=== PATIENT | female | born 1990 | race Caucasian/White ===

== ENCOUNTER 2017-11-22 18:25 | Emergency (ER) | payer OTHER, SELFPAY ==
[2017-11-22 21:00] LABS: Urine Blood NEGATIVE (NEG); Urine Glucose NEGATIVE (NEG); Urine Protein NEGATIVE (NEG); Urine Specific Gravity 1.025 (1.005-1.030)
--- NOTE | 2017-11-22 21:21 | EDPHYS ---
Physician Documentation [facility] Name: Kerri Fulton Age: 27 yrs Sex: Female : 1990 Arrival Date: 11/22/2017 Time: 18:29 Bed 12 Private MD: ED Physician Angel Restrepo HPI: 11/23 03:40 This 27 yrs old Female presents to ER via Ambulatory with complaints of Back pm1 Pain. 03:40 The patient presents with pain that is acute. The symptoms are located in the low back. pm1 Onset: The symptoms/episode began/occurred 1 week(s) ago. The pain does not radiate. Associated signs and symptoms: Pertinent negatives: abdominal pain, dysuria, fever, numbness, tingling, Vaginal bleeding. 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 Modifying factors: The patient symptoms are alleviated by rest, the patient symptoms are aggravated by bending, lifting, movement. Severity of symptoms: in the emergency department the symptoms are unchanged. 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 - Social history:: Smoking status: Patient/guardian denies using tobacco. ROS: 11/23 03:40 Constitutional: Negative for fever, chills, and weight loss, Eyes: Negative for injury, pm1 pain, redness, and discharge, ENT: Negative for injury, pain, and discharge, Neck: Negative for injury, pain, and swelling, Cardiovascular: Negative for chest pain, palpitations, and edema, Respiratory: Negative for shortness of breath, cough, wheezing, and pleuritic chest pain, Abdomen/GI: Negative for abdominal pain, nausea, vomiting, diarrhea, and constipation. : Negative for injury, bleeding, discharge, and swelling, MS/Extremity: Negative for injury and deformity, Skin: Negative for injury, rash, and discoloration, Neuro: Negative for headache, weakness, numbness, tingling, and seizure. Back: Positive for of the low back area. Exam: 03:40 Constitutional: This is a well developed, well nourished patient who is awake, alert, pm1 and in no acute distress. Head/Face: Normocephalic, atraumatic. Eyes: Pupils equal round and reactive to light, extra-ocular motions intact. Lids and lashes normal. Conjunctiva and sclera are non-icteric and not injected. Cornea within normal limits. Periorbital areas with no swelling, redness, or edema. ENT: Nares patent. No nasal discharge, no septal abnormalities noted. Tympanic membranes are normal and external auditory canals are clear. Oropharynx with no redness, swelling, or masses, exudates, or evidence of obstruction, uvula midline. Mucous membranes moist. Neck: Trachea midline, no thyromegaly or masses palpated, and no cervical lymphadenopathy. Supple, full range of motion without nuchal rigidity, or vertebral point tenderness. No Meningismus. Chest/axilla: Normal chest wall appearance and motion. Nontender with no deformity. No lesions are appreciated. Cardiovascular: Regular rate and rhythm with a normal S1 and S2. No gallops, murmurs, or rubs. Normal PMI, no JVD. No pulse deficits. Respiratory: Lungs have equal breath sounds bilaterally, clear to auscultation and percussion. No rales, rhonchi or wheezes noted. No increased work of breathing, no retractions or nasal flaring. Abdomen/GI: Soft, non-tender, with normal bowel sounds. No distension or tympany. No guarding or rebound. No evidence of tenderness throughout. 03:40 Skin: Warm, dry with normal turgor. Normal color with no rashes, no lesions, and no evidence of cellulitis. MS/ Extremity: Pulses equal, no cyanosis. Neurovascular intact. Full, normal range of motion. 03:40 Back: normal spinal alignment noted, muscle spasm, is not present. 03:40 Neuro: Orientation: is normal, Mentation: is normal, Motor: is normal, moves all fours, strength is normal, strength is 5/5 in all extremities, Sensation: is normal, no obvious gross deficits, Gait: is steady, at a normal pace, without difficulty. Vital Signs: 11/22 18:46 BP 110 / 80; Pulse 68; Resp 15; Temp 97.6(TE); Pulse Ox 100% on R/A; Weight 104.33 kg lk1 (R); Height 5 ft. 3 in. (160.02 cm) (R); Pain 8/10; 18:46 Body Mass Index 40.74 (104.33 kg, 160.02 cm) lk1 MDM: 20:28 Patient medically screened. pm1 21:18 Data reviewed: vital signs. Data interpreted: Pulse oximetry: on room air is 100 %. pm1 Interpretation: normal. Counseling: I had a detailed discussion with the patient and/or guardian regarding: the historical points, exam findings, and any diagnostic results supporting the discharge/admit diagnosis, lab results, the need for outpatient follow up, an OB/Gyne specialist, to return to the emergency department if symptoms worsen or persist or if there are any questions or concerns that arise at home. 11/22 20:58 Order name: Urine Dipstick--Ancillary (enter results); Complete Time: 21:09 em1 11/22 20:58 Order name: Urine --Ancillary (enter results); Complete Time: 21:09 em1 11/22 21:11 Order name: Urine Microscopic Only [facility] 11/22 21:11 Order name: Urine Culture [facility] 11/22 21:11 Order name: Urine Microscopic Only [facility] 11/22 21:11 Order name: Urine Culture [facility] 11/22 20:39 Order name: Urine Dipstick-Ancillary (obtain specimen); Complete Time: 20:57 pm1 11/22 20:39 Order name: Urine Test (obtain specimen); Complete Time: 20:57 pm1 Administered Medications: No medications were administered Disposition: 11/23 01:25 Co-signature as Attending Physician, Angel Restrepo MD. pkl Disposition: 11/22/17 21:20 Discharged to Home. Impression: Urinary tract infection, site not specified, . - Condition is Stable. - Discharge Instructions: and Urinary Tract Infection. - Prescriptions for Macrobid 100 mg Oral Capsule - take 1 capsule by ORAL route every 12 hours for 10 days; 20 capsule. - Medication Reconciliation Form, Thank You Letter, Antibiotic Education form. - Follow up: Emergency Department; When: As needed; Reason: Worsening of condition. Follow up: Private Physician; When: 2 - 3 days; Reason: Recheck today's complaints, Continuance of care, Re-evaluation by your physician. - Problem is new. - Symptoms have improved. Signatures: Dispatcher [employer] Angel Muñoz MD MD pkl Chretien, Felicia, RN RN fc Eugenie Ramirez RN RN lk1 Byron Cote, KARLA CUBE MACHINE TENDER pm1
--- NOTE | 2017-11-22 21:21 | ER ---
Nurse's Notes [facility] Name: Kerri Fulton Age: 27 yrs Sex: Female : 1990 Arrival Date: 11/22/2017 Time: 18:29 Bed 12 Private MD: Diagnosis: Urinary tract infection, site not specified; Presentation: 11/22 18:44 Presenting complaint: Patient states: My back has been killing me. I have three kids lk1 and I can't stand very long. Transition of care: patient was not received from another setting of care. Onset of symptoms was November 06, 2017. Care prior to arrival: None. 18:44 Method Of Arrival: Ambulatory lk1 18:44 Acuity: KEN 5 lk1 Triage Assessment: 18:45 General: Appears in no apparent distress. Behavior is calm, cooperative, appropriate lk1 for age. Pain: Complains of pain in low back area Pain currently is 8 out of 10 on a pain scale. Musculoskeletal: Swelling absent. 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 - Social history:: Smoking status: Patient/guardian denies using tobacco. Screenin:17 Abuse screen: Denies threats or abuse. Nutritional screening: No deficits noted. fc Tuberculosis screening: No symptoms or risk factors identified. Fall Risk None identified. Assessment: 20:17 General: Appears uncomfortable, obese, Behavior is calm, cooperative, appropriate for fc age. Pain: Complains of pain in low back area Quality of pain is described as aching, throbbing, Pain began gradually, Is continuous, Aggravated by increased activity, repositioning, weight bearing. Neuro: Level of Consciousness is awake, alert, obeys commands, Oriented to person, place, time, situation, Document Review Attorney are equal bilaterally Moves all extremities. Full function Gait is steady, Speech is normal. Cardiovascular: No deficits noted. Respiratory: No deficits noted. GI: No deficits noted. : Denies burning with urination, incontinence, urinary frequency. EENT: No deficits noted. Derm: Skin is pink, warm \T\ dry. Musculoskeletal: Circulation, motion, and sensation intact. Capillary refill < 3 seconds, Range of motion: intact in all extremities, Reports pain in low back area. 20:30 Reassessment: Byron ACOSTA in to see and examine pt. 21:12 Reassessment: Byron ACOSTA in to discuss positive test and need for follow up. Vital Signs: 18:46 BP 110 / 80; Pulse 68; Resp 15; Temp 97.6(TE); Pulse Ox 100% on R/A; Weight 104.33 kg lk1 (R); Height 5 ft. 3 in. (160.02 cm) (R); Pain 8/10; 18:46 Body Mass Index 40.74 (104.33 kg, 160.02 cm) lk1 ED Course: 18:29 Patient arrived in ED. as 18:45 Triage completed. lk1 18:47 Arm band placed on right wrist. lk1 20:17 Patient has correct armband on for positive identification. Call light in reach. fc 20:17 No provider procedures requiring assistance completed. Patient did not have IV access fc during this emergency room visit. 20:19 Urine collected: clean catch specimen, clear. 20:24 Byron Cote NP is PHCP. pm1 20:24 Angel Restrepo MD is Attending Physician. pm1 Administered Medications: No medications were administered Outcome: 21:20 Discharge ordered by . pm1 21:36 Discharged to home ambulatory. 21:36 Condition: good 21:36 Discharge instructions given to patient, Instructed on discharge instructions, follow up and referral plans. medication usage, Demonstrated understanding of instructions, follow-up care, medications, Prescriptions given X 1. 21:36 Patient left the ED. Addendum: 11/25/2017 07:21 Addendum: Culture Results: Positive urine culture. No further action required. Bacteria f c sensitive to prescribed antibiotic. Signatures: Luz Key RN RN Jessi Hutchinson Leah, RN RN [facility] Byron Cote NP FURNITURE ASSOCIATE pm1
[2017-11-22 21:50] VITALS: BP 110/80; TEMP 97.6; O2SAT 100
[2017-11-22 21:57] LABS: Urine Bacteria >50 /HPF (<20); Urine Culture Reflex Order NOT NEEDED; Urine Mucus NS /HPF (NONE SEEN); Urine RBC NONE SEEN /HPF (NONE SEEN)
== END 2017-11-22 21:36 | disposition home or self-care (01) ==
LOC: ER 18:25
DX: N39.0 Urinary tract infection, site not specified (principal); Z33.1 Pregnant state, incidental
CPT/HCPCS: 81003; 81015; 81025; 87077; 87086; 87088; 87186; 99283

== ENCOUNTER 2017-12-22 18:04 | Emergency (ER) | payer OTHER, SELFPAY ==
--- NOTE | 2017-12-22 19:24 | ER ---
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 Transition of care: patient was not received from another setting of care. Onset of symptoms was December 22, 2017. Initial Sepsis Screen: Does the patient meet any 2 criteria? No. Patient's initial sepsis screen is negative. Does the patient have a suspected source of infection? No. Patient's initial sepsis screen is negative. Care prior to arrival: None. 18:13 Method Of Arrival: Ambulatory 18:13 Acuity: KEN 3 aj Triage Assessment: 18:14 General: Appears in no apparent distress. comfortable, Behavior is calm, cooperative, aj appropriate for age. Pain: Complains of pain in coccyx, left lower back and right lower back. Neuro: Level of Consciousness is awake, alert, obeys commands, Oriented to person, place, time, situation, Appropriate for age. Respiratory: Airway is patent Respiratory effort is even, unlabored, Respiratory pattern is regular, symmetrical. : Reports vaginal bleeding that is spotty. Derm: Skin is intact, is healthy with good turgor, Skin is pink, warm \T\ dry. normal. 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 - Social history:: Smoking status: Patient/guardian denies using tobacco. Screenin:17 Abuse screen: Denies threats or abuse. Denies injuries from another. Nutritional bp screening: No deficits noted. Tuberculosis screening: No symptoms or risk factors identified. Fall Risk None identified. Assessment: 19:00 General: Appears in no apparent distress. comfortable, Behavior is cooperative, bp appropriate for age, anxious. Pain: Denies pain. Neuro: Level of Consciousness is awake, alert, obeys commands, Oriented to person, place, time, situation, Appropriate for age. Cardiovascular: No deficits noted. Respiratory: Airway is patent Respiratory effort is even, unlabored, Respiratory pattern is regular, symmetrical. GI: No deficits noted. : Reports vaginal bleeding that is. EENT: No deficits noted. Derm: No deficits noted. Musculoskeletal: Circulation, motion, and sensation intact. Range of motion: intact in all extremities. 19:19 Reassessment: PT LEAVING WITHOUT BEING SEEN, DECLINED TO STAY FOR TREATMENT. VS STABLE, bp NO ACUTE FINDINGS AT THIS TIME. PT ADVISED TO RETURN IF S/S WORSEN. Vital Signs: 18:14 BP 101 / 58; Pulse 82; Resp 18; Temp 98.1; Pulse Ox 99% on R/A; Weight 117.93 kg; aj Height 5 ft. 3 in. (160.02 cm); 18:14 Body Mass Index 46.06 (117.93 kg, 160.02 cm) ED Course: 18:07 Patient arrived in ED. mr 18:14 Triage completed. aj 18:14 Arm band placed on right wrist. Patient placed in waiting room, Patient notified of aj wait time. 19:13 Chris Everett, RN is Primary Nurse. bp 19:17 Patient has correct armband on for positive identification. Bed in low position. Call bp light in reach. Side rails up X2. 19:21 No provider procedures requiring assistance completed. Patient did not have IV access bp during this emergency room visit. 19:22 Juan Manuel Ackerman MD is Attending Physician. tiara Administered Medications: No medications were administered Outcome: 19:22 Eloped from patient exam room, before seeing physician bp 19:22 unknown 19:23 Patient left the ED. bp Signatures: Jacquelyn Garcia, RN RN Juan Manuel Vasquez MD MD cha Rivera, Maria mr Chris Everett, RN RN bp
[2017-12-22 19:31] VITALS: BP 101/58; TEMP 98.1; O2SAT 99
== END 2017-12-22 19:23 | disposition left against medical advice (07) ==
LOC: ER 18:04
DX: Z02.9 Encounter for administrative examinations, unspecified (principal)
CPT/HCPCS: 99281

== ENCOUNTER 2017-12-22 20:58 | Emergency (ER) | payer OTHER, SELFPAY ==
--- NOTE | 2017-12-22 22:42 | RAD REPORT ---
EXAM DESCRIPTION: US - Transvaginal OB - 12/22/2017 10:34 pm CLINICAL HISTORY: Vaginal bleeding. COMPARISON: None. FINDINGS: A single gestational sac is seen within the uterus. Within the sac is a single pole with crown-rump length measuring 2.6 cm corresponding to 9 weeks 3 days gestational age. Cardiac activity is normal measuring 160 BPM. 18 x 16 x 5 mm subchorionic bleed is present. Neither ovary was well identified sonographically. No pelvic ascites. IMPRESSION: Single live early intrauterine gestation as detailed above.
[2017-12-22] MEDS ORDERED: NA CHLORIDE 0.9% 1,000 ML ONE (22:52)
[2017-12-22 23:13] LABS: Absolute Lymphocytes (CBC) 2.2 K/uL (0.7-4.9); Absolute Monocytes 0.7 K/uL (0.1-1.3); Absolute Neutrophil 6.6 K/uL (1.8-8.0); Basophils % 0.4 % (0-1.3); Eosinophils % 1.3 % (0-4.4); Hematocrit 37.7 % (36.0-45.0); Lymphocytes % 22.8 % (15.3-44.8); MCH 26.7 pg (27.0-35.0); MCV 79.7 fL (80-100); MPV 9.2 fL (7.6-11.3); Monocytes % 7.5 % (3.3-12.3); RBC Red Blood Cell Count 4.73 M/uL (3.86-4.86)
[2017-12-22 23:22] LABS: BUN Blood Urea Nitrogen 10 mg/dL (6-20); Bicarbonate 27 mEq/L (21-31); Glucose Level 103 mg/dL (65-120); Potassium 3.4 mEq/L (3.6-5.0); Sodium Level 134 mEq/L (135-145)
[2017-12-23] MEDS ORDERED: POTASSIUM CL SA 10 MEQ TAB PO ONE (00:10)
--- NOTE | 2017-12-23 00:16 | ER ---
Nurse's Notes [facility] Name: Kerri Fulton Age: 27 yrs Sex: Female : 1990 Arrival Date: 12/22/2017 Time: 21:00 Bed 2 Private MD: Diagnosis: Threatened -subchorionic hemorrhage; related conditions, unspecified, first trimester;Hypokalemia Presentation: 12/22 21:00 Presenting complaint: Patient states: "I was here but I was just sitting there in a aj room and I was missing my son's baseball game so I left the room to go watch it." Patient reports spotty dark red blood when wiping. Transition of care: patient was not received from another setting of care. Onset of symptoms was December 22, 2017. Initial Sepsis Screen: Does the patient meet any 2 criteria? No. Patient's initial sepsis screen is negative. Does the patient have a suspected source of infection? No. Patient's initial sepsis screen is negative. Care prior to arrival: None. 21:00 Method Of Arrival: Ambulatory aj 21:00 Acuity: KEN 3 aj 21:05 Note Patient is eating chips during triage. aj 21:59 Note Pt left and returned at 2150. Pt in room at 2159. No change since previous triage tl2 assessment. Triage Assessment: 21:03 General: Appears in no apparent distress. comfortable, Behavior is calm, cooperative, aj appropriate for age. Pain: Denies pain. Neuro: Level of Consciousness is awake, alert, obeys commands, Oriented to person, place, time, situation, Appropriate for age. Respiratory: Airway is patent Respiratory effort is even, unlabored, Respiratory pattern is regular, symmetrical. : Reports vaginal bleeding that is spotty. Derm: Skin is intact, is healthy with good turgor, Skin is pink, warm \\T\\ dry. normal. 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 - Social history:: Smoking status: Patient/guardian denies using tobacco. - Family history:: not pertinent. Screenin:00 Abuse screen: Denies threats or abuse. Nutritional screening: No deficits noted. tl2 Tuberculosis screening: No symptoms or risk factors identified. Fall Risk None identified. Assessment: 22:00 General: Appears in no apparent distress. comfortable, Behavior is calm, cooperative, tl2 appropriate for age. Pain: Complains of pain in suprapubic area Pain does not radiate. Neuro: Level of Consciousness is awake, alert, obeys commands. Cardiovascular: Denies chest pain. Respiratory: Airway is patent Respiratory effort is even, unlabored, Respiratory pattern is regular, symmetrical. GI: Reports cramping. : Reports vaginal bleeding that is bright red, light flow, blood reported when wiping. Pt is not saturating pads. Derm: Skin is pink, warm \\T\\ dry. 23:19 Reassessment: Patient appears in no apparent distress at this time. No changes from tl2 previously documented assessment. Patient and/or family updated on plan of care and expected duration. Pain level reassessed. Patient is alert, oriented x 3, equal unlabored respirations, skin warm/dry/pink. 12/23 00:49 Reassessment: Patient appears in no apparent distress at this time. Patient and/or tl2 family updated on plan of care and expected duration. Pain level reassessed. Pt sleeping, eyes closed RR even and unlabored. Awaiting Rhogam from lab. 02:22 Reassessment: Patient appears in no apparent distress at this time. Patient and/or tl2 family updated on plan of care and expected duration. Pain level reassessed. Patient is alert, oriented x 3, equal unlabored respirations, skin warm/dry/pink. Pt verbalized understanding of discharge instructions, need for follow up and prescription usage. Vital Signs: 12/22 21:03 BP 110 / 69; Pulse 80; Resp 16; Temp 98.2; Pulse Ox 100% on R/A; Weight 117.93 kg; aj Height 5 ft. 3 in. (160.02 cm); Pain 0/10; 21:55 BP 131 / 76; Pulse 80; Resp 16; Temp 98.2; Pulse Ox 100% on R/A; mt 23:19 BP 131 / 85; Pulse 78; Resp 18; Pulse Ox 99% on R/A; tl2 12/23 00:15 BP 119 / 68; Pulse 78; Resp 18; Pulse Ox 99% on R/A; tl2 12/22 21:03 Body Mass Index 46.06 (117.93 kg, 160.02 cm) ED Course: 12/22 21:00 Patient arrived in ED. aj 21:03 Triage completed. aj 21:03 Arm band placed on right wrist. Patient placed in waiting room, Patient notified of wait time. 21:59 Romy Mora, RN is Primary Nurse. tl2 22:00 Patient has correct armband on for positive identification. Bed in low position. Call tl2 light in reach. Side rails up X 1. Adult w/ patient. 22:01 Juan Manuel Ackerman MD is Attending Physician. tiara 22:34 US Transvaginal Ob In Process Unspecified. EDMS 22:36 Ultrasound completed. Patient tolerated well. cy 22:58 Inserted saline lock: 22 gauge in left antecubital area, using aseptic technique. Blood tl2 collected. placed by [employer]. 12/23 00:16 Ana Paula Cruz MD is Referral Physician. tiara 02:22 No provider procedures requiring assistance completed. IV discontinued, intact, tl2 bleeding controlled, No redness/swelling at site. Pressure dressing applied. Administered Medications: 12/22 22:57 Drug: NS 0.9% 1000 ml Route: IV; Rate: 1 bolus; Site: left antecubital; tl2 12/23 02:24 Follow up: IV Status: Completed infusion; IV Intake: 1000ml tl2 00:13 Drug: Potassium Chloride 20 mEq Route: PO; tl2 02:24 Follow up: Response: No adverse reaction tl2 02:08 Drug: Rho D Immune Globulin 300 mcg Route: IM; Site: right gluteus; tl2 02:25 Follow up: Response: No adverse reaction; Medication administered at discharge. tl2 Intake: 02:24 IV: 1000ml; Total: 1000ml. tl2 Outcome: 00:16 Discharge ordered by . tiara 02:22 Discharged to home ambulatory, with family. tl2 02:22 Condition: stable 02:22 Discharge instructions given to patient, family, Instructed on discharge instructions, follow up and referral plans. medication usage, Demonstrated understanding of instructions, follow-up care, medications, Prescriptions given X 1. 02:25 Patient left the ED. tl2 Signatures: Dispatcher [employer] Jacquelyn Means, Juan Manuel Garcia RN, MD MD cha Knox, Taylor, RN RN tl2 Peyton Levi mt, Chheannith Corrections: (The following items were deleted from the chart) 12/22 21:56 21:55 BP 121 / 81; Pulse 89bpm; Resp 16bpm; Pulse Ox 98% RA; [facility]
--- NOTE | 2017-12-23 00:16 | EDPHYS ---
Physician Documentation [facility] Name: Kerri Fulton Age: 27 yrs Sex: Female : 1990 Arrival Date: 12/22/2017 Time: 21:00 Bed 2 Private MD: ED Physician Juan Manuel Ackerman HPI: 12/22 22:59 This 27 yrs old Female presents to ER via Ambulatory with complaints of tiara Vaginal Bleeding. 22:59 The patient presents with pelvic pain, vaginal bleeding that is light. Onset: The tiara symptoms/episode began/occurred just prior to arrival. Modifying factors: The symptoms are alleviated by nothing, the symptoms are aggravated by nothing. Associated signs and symptoms: The patient has no apparent associated signs or symptoms. Severity of symptoms: At their worst the symptoms were very mild, in the emergency department the symptoms are unchanged. The patient is sexually active. The patient has not experienced similar symptoms in the past. 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 - Social history:: Smoking status: Patient/guardian denies using tobacco. - Family history:: not pertinent. ROS: 22:59 Constitutional: Negative for fever, chills, and weight loss, Eyes: Negative for injury, tiara pain, redness, and discharge, ENT: Negative for injury, pain, and discharge, Neck: Negative for injury, pain, and swelling, Cardiovascular: Negative for chest pain, palpitations, and edema, Respiratory: Negative for shortness of breath, cough, wheezing, and pleuritic chest pain, Abdomen/GI: Negative for abdominal pain, nausea, vomiting, diarrhea, and constipation, Back: Negative for injury and pain, MS/Extremity: Negative for injury and deformity, Skin: Negative for injury, rash, and discoloration, Neuro: Negative for headache, weakness, numbness, tingling, and seizure, Psych: Negative for depression, anxiety, suicide ideation, homicidal ideation, and hallucinations, Allergy/Immunology: Negative for hives, rash, and allergies, Endocrine: Negative for neck swelling, polydipsia, polyuria, polyphagia, and marked weight changes, Hematologic/Lymphatic: Negative for swollen nodes, abnormal bleeding, and unusual bruising. 22:59 : Positive for pelvic pain, vaginal bleeding. Exam: 22:59 Constitutional: This is a well developed, well nourished patient who is awake, alert, tiara and in no acute distress. Head/Face: Normocephalic, atraumatic. Eyes: Pupils equal round and reactive to light, extra-ocular motions intact. Lids and lashes normal. Conjunctiva and sclera are non-icteric and not injected. Cornea within normal limits. Periorbital areas with no swelling, redness, or edema. ENT: Nares patent. No nasal discharge, no septal abnormalities noted. Tympanic membranes are normal and external auditory canals are clear. Oropharynx with no redness, swelling, or masses, exudates, or evidence of obstruction, uvula midline. Mucous membranes moist. Neck: Trachea midline, no thyromegaly or masses palpated, and no cervical lymphadenopathy. Supple, full range of motion without nuchal rigidity, or vertebral point tenderness. No Meningismus. Chest/axilla: Normal chest wall appearance and motion. Nontender with no deformity. No lesions are appreciated. Cardiovascular: Regular rate and rhythm with a normal S1 and S2. No gallops, murmurs, or rubs. Normal PMI, no JVD. No pulse deficits. Respiratory: Lungs have equal breath sounds bilaterally, clear to auscultation and percussion. No rales, rhonchi or wheezes noted. No increased work of breathing, no retractions or nasal flaring. Abdomen/GI: Soft, non-tender, with normal bowel sounds. No distension or tympany. No guarding or rebound. No evidence of tenderness throughout. Back: No spinal tenderness. No costovertebral tenderness. Full range of motion. Female : Normal external genitalia. Skin: Warm, dry with normal turgor. Normal color with no rashes, no lesions, and no evidence of cellulitis. MS/ Extremity: Pulses equal, no cyanosis. Neurovascular intact. Full, normal range of motion. Neuro: Awake and alert, GCS 15, oriented to person, place, time, and situation. Cranial nerves II-XII grossly intact. Motor strength 5/5 in all extremities. Sensory grossly intact. Cerebellar exam normal. Normal gait. Psych: Awake, alert, with orientation to person, place and time. Behavior, mood, and affect are within normal limits. Vital Signs: 21:03 BP 110 / 69; Pulse 80; Resp 16; Temp 98.2; Pulse Ox 100% on R/A; Weight 117.93 kg; aj Height 5 ft. 3 in. (160.02 cm); Pain 0/10; 21:55 BP 131 / 76; Pulse 80; Resp 16; Temp 98.2; Pulse Ox 100% on R/A; mt 23:19 BP 131 / 85; Pulse 78; Resp 18; Pulse Ox 99% on R/A; tl2 12/23 00:15 BP 119 / 68; Pulse 78; Resp 18; Pulse Ox 99% on R/A; [facility] 12/22 21:03 Body Mass Index 46.06 (117.93 kg, 160.02 cm) MDM: 12/22 22:01 Patient medically screened. [facility] 12/22 22:02 Order name: Quantitative Hcg; Complete Time: 00:15 [facility] 12/22 22:02 Order name: Abo/rh Typing [facility] 12/22 22:02 Order name: Basic Metabolic Panel; Complete Time: 00:15 [facility] 12/22 22:02 Order name: CBC with Diff; Complete Time: 23:26 [facility] 12/23 00:23 Order name: Rh Typing [facility] 12/23 00:23 Order name: Antibody Screen [facility] 12/23 00:23 Order name: Fetalscreen [facility] 12/23 00:23 Order name: Cord Rh type [facility] 12/23 00:23 Order name: Rhogam [facility] 12/22 22:02 Order name: IV Saline Lock; Complete Time: 22:58 [facility] 12/22 22:02 Order name: Labs collected and sent; Complete Time: 22:58 [facility] 12/22 22:02 Order name: NPO; Complete Time: 22:20 [facility] 12/22 22:02 Order name: US Transvaginal Ob; Complete Time: 22:59 [facility] Administered Medications: 22:57 Drug: NS 0.9% 1000 ml Route: IV; Rate: 1 bolus; Site: left antecubital; [facility] 12/23 02:24 Follow up: IV Status: Completed infusion; IV Intake: 1000ml tl2 00:13 Drug: Potassium Chloride 20 mEq Route: PO; tl2 02:24 Follow up: Response: No adverse reaction tl2 02:08 Drug: Rho D Immune Globulin 300 mcg Route: IM; Site: right gluteus; tl2 02:25 Follow up: Response: No adverse reaction; Medication administered at discharge. tl2 Disposition: 12/23/17 00:16 Discharged to Home. Impression: Threatened - subchorionic hemorrhage, related conditions, unspecified, first trimester, Hypokalemia. - Condition is Stable. - Discharge Instructions: Threatened Miscarriage, First Trimester of , Mqjm-de-Ihoo, First Trimester of , Threatened Miscarriage, Firj-wp-Cnan, Pelvic Rest, Hypokalemia. - Prescriptions for Vitamin 27- 0.8 mg Oral Tablet - take 1 tablet by ORAL route once daily; 30 tablet. - Medication Reconciliation Form, Thank You Letter, Antibiotic Education, Prescription Opioid Use form. - Follow up: Private Physician; When: 2 - 3 days; Reason: Recheck today's complaints, Continuance of care, Re-evaluation by your physician. Follow up: Ana Paula Cruz MD; When: 1 - 2 days; Reason: Recheck today's complaints, Re-evaluation by your physician. - Problem is new. - Symptoms have improved. Signatures: Dispatcher [employer] EDJacquelyn Velasquez RN RN aj Anderson, Corey, MD MD cha Knox, Taylor, RN RN tl2 Corrections: (The following items were deleted from the chart) 00:17 00:16 12/23/2017 00:16 Discharged to Home. Impression: Threatened - tiara subchorionic hemorrhage; related conditions, unspecified, first trimester; Hypokalemia. Condition is Stable. Discharge Instructions: Threatened Miscarriage, First Trimester of , Rglr-er-Tfub, First Trimester of , Threatened Miscarriage, Xtkx-[id number]-[id number], Pelvic Rest, Hypokalemia. Prescriptions for Vitamin 27-0.8 mg Oral Tablet - take 1 tablet by ORAL route once daily; 30 tablet. and Forms are Medication Reconciliation Form, Thank You Letter, Antibiotic Education, Prescription Opioid Use. Follow up: Private Physician; When: 2 - 3 days; Reason: Recheck today's complaints, Continuance of care, Re-evaluation by your physician. Problem is new. Symptoms have improved. [facility] 00:23 00:16 RHOGAM+[id number].LAB.BRZ ordered. [facility] 00: 00:17 Rh Typing ordered. [facility] 00: 00:17 Antibody Screen ordered. [facility] 00: 00:17 Fetalscreen ordered. [facility] 00: 00:17 Cord Rh type ordered. [facility] 02:25 00:17 12/23/2017 00:16 Discharged to Home. Impression: Threatened - tl2 subchorionic hemorrhage; related conditions, unspecified, first trimester; Hypokalemia. Condition is Stable. Discharge Instructions: Threatened Miscarriage, First Trimester of , Izrq-rx-Fdvo, First Trimester of , Threatened Miscarriage, Dmlf-hs-Mhwz, Pelvic Rest, Hypokalemia. Prescriptions for Vitamin 27-0.8 mg Oral Tablet - take 1 tablet by ORAL route once daily; 30 tablet. and Forms are Medication Reconciliation Form, Thank You Letter, Antibiotic Education, Prescription Opioid Use. Follow up: Private Physician; When: 2 - 3 days; Reason: Recheck today's complaints, Continuance of care, Re-evaluation by your physician. Follow up: Ana Paula Marshalli; When: 1 - 2 days; Reason: Recheck today's complaints, Re-evaluation by your physician. Problem is new. Symptoms have improved. tiara
[2017-12-23 02:28] VITALS: TEMP 98.2
[2017-12-23 02:31] VITALS: O2SAT 99
[2017-12-23 02:32] VITALS: BP 119/68
== END 2017-12-23 02:25 | disposition home or self-care (01) ==
LOC: ER 20:58
DX: O20.0 Threatened abortion (principal)
CPT/HCPCS: 36415; 76817; 80048; 84702; 85025; 86850; 86900; 86901; 96360; 96361; 96372; 99284; J2790; J7030

== ENCOUNTER 2018-05-31 20:28 | Emergency (ER) | payer OTHER ==
--- NOTE | 2018-05-31 21:17 | ER ---
Nurse's Notes [facility] Name: Kerri Fulton Age: 27 yrs Sex: Female : 1990 Arrival Date: 05/31/2018 Time: 20:32 Bed DIS1 Private MD: Shon Neff B Diagnosis: Acute upper respiratory infection, unspecified; state Presentation: 05/31 20:34 Presenting complaint: Patient states: runny nose, sore throat, cough with green sputum, sr5 vomited x 1 yesterday. s/s x 1 week. Pt's son being for similar s/s. Pt alert/active, equal unlabored resp, +sinus drainage, skin warm/dry/nc. Pt is currently 33 weeks , reports taking several OTC congestion meds. Transition of care: patient was not received from another setting of care. Onset of symptoms was May 16, 2018. 20:34 Method Of Arrival: Ambulatory sr5 20:34 Acuity: KEN 3 sr5 21:35 Risk Assessment: Do you want to hurt yourself or someone else? Patient reports no mg2 desire to harm self or others. Initial Sepsis Screen: Does the patient meet any 2 criteria? No. Patient's initial sepsis screen is negative. Does the patient have a suspected source of infection? No. Patient's initial sepsis screen is negative. Care prior to arrival: None. Triage Assessment: 20:37 General: Appears in no apparent distress. Behavior is calm, cooperative. Pain: sr5 Complains of pain in neck. EENT: Reports nasal discharge cough with green sputum, sinus drainage, sore throat. Neuro: No deficits noted. Cardiovascular: No deficits noted. Respiratory: Respiratory effort is even, unlabored, Respiratory pattern is regular, symmetrical. 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 - Social history:: Smoking status: Patient/guardian denies using tobacco, never smoked. - Ebola Screening: : Patient negative for fever greater than or equal to 101.5 degrees Fahrenheit, and additional compatible Ebola Virus Disease symptoms. Screenin:35 Abuse screen: Denies threats or abuse. Denies injuries from another. Nutritional mg2 screening: No deficits noted. Tuberculosis screening: No symptoms or risk factors identified. Fall Risk None identified. Assessment: 21:34 General: Appears in no apparent distress. comfortable, Behavior is calm, cooperative. mg2 Pain: Complains of pain in throat Pain does not radiate. Neuro: Level of Consciousness is awake, alert, obeys commands, Oriented to person, place, time, situation. Cardiovascular: Capillary refill < 3 seconds Patient's skin is warm and dry. Respiratory: Airway is patent Respiratory effort is even, unlabored, Respiratory pattern is regular, symmetrical, Breath sounds are clear. GI: No signs and/or symptoms were reported involving the gastrointestinal system. : No signs and/or symptoms were reported regarding the genitourinary system. EENT: Reports sore throat. Derm: Skin is intact, is healthy with good turgor, Skin is pink, warm \T\ dry. normal. Musculoskeletal: No signs and/or symptoms reported regarding the musculoskeletal system. Vital Signs: 20:37 BP 142 / 83; Pulse 94; Resp 18; Temp 97.4; Pulse Ox 100% on R/A; sr5 ED Course: 20:32 Patient arrived in ED. am2 20:33 Shon Neff MD is Private Physician. am2 20:36 Triage completed. sr5 20:36 [facility] Franklin [facility] snw 20:36 Moises Rueda MD is Attending Physician. snw 20:37 Arm band placed on. sr5 20:56 Yohan Sharp, STEPHANE is Primary Nurse. mg2 21:35 Patient has correct armband on for positive identification. mg2 21:35 No provider procedures requiring assistance completed. Patient did not have IV access mg2 during this emergency room visit. Administered Medications: No medications were administered Outcome: 21:17 Discharge ordered by . snw 21:36 Discharged to home ambulatory, with family. mg2 21:36 Condition: good 21:36 Discharge instructions given to patient, family, Instructed on discharge instructions, follow up and referral plans. medication usage, Demonstrated understanding of instructions, follow-up care, medications, Prescriptions given X 1. 21:36 Patient left the ED. mg2 Signatures: Rocío Franklin, LADLE PATCHER-C LADLE PATCHER-Csnw Brad Saleem RN RN sr5 Jacquelyn Timmons am2 Yohan Sharp, RN RN mg2 Corrections: (The following items were deleted from the chart) 20:40 20:34 Presenting complaint: Patient states: runny nose, sore throat, cough with green sr5 sputum, vomited x 1 yesterday. s/s x 1 week. Pt's son being for similar s/s. Pt alert/active, equal unlabored resp, +sinus drainage, skin warm/dry/nc. sr5
--- NOTE | 2018-05-31 21:18 | EDPHYS ---
Physician Documentation [facility] Name: Kerri Fulton Age: 27 yrs Sex: Female : 1990 Arrival Date: 05/31/2018 Time: 20:32 Bed DIS1 Private MD: Shon Neff B ED Physician Moises Rueda HPI: 05/31 21:24 This 27 yrs old Female presents to ER via Ambulatory with complaints of snw Cough, Congestion. 21:24 The patient or guardian reports cough, flu symptoms. Onset: The symptoms/episode snw began/occurred 2 week(s) ago, and became persistent. Severity of symptoms: At their worst the symptoms were mild, moderate. Associated signs and symptoms: The patient has no apparent associated signs or symptoms. It is unknown whether or not the patient has had similar symptoms in the past. It is unknown whether or not the patient has recently seen a physician. no related complaints. 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 - Social history:: Smoking status: Patient/guardian denies using tobacco, never smoked. - Ebola Screening: : Patient negative for fever greater than or equal to 101.5 degrees Fahrenheit, and additional compatible Ebola Virus Disease symptoms. ROS: 21:22 Constitutional: Negative for fever, chills, and weight loss, Eyes: Negative for injury, snw pain, redness, and discharge. 21:22 Neck: Negative for injury, pain, and swelling, Cardiovascular: Negative for chest pain, palpitations, and edema. 21:22 Back: Negative for injury and pain, : Negative for injury, bleeding, discharge, and swelling, MS/Extremity: Negative for injury and deformity, Skin: Negative for injury, rash, and discoloration, Neuro: Negative for headache, weakness, numbness, tingling, and seizure. 21:22 Abdomen/GI: Negative for abdominal pain, nausea, vomiting, diarrhea, and constipation. 21:22 ENT: Positive for sinus congestion. 21:22 Respiratory: Positive for cough. Exam: 21:21 Constitutional: This is a well developed, well nourished patient who is awake, alert, snw and in no acute distress. Head/Face: Normocephalic, atraumatic. Eyes: Pupils equal round and reactive to light, extra-ocular motions intact. Lids and lashes normal. Conjunctiva and sclera are non-icteric and not injected. Cornea within normal limits. Periorbital areas with no swelling, redness, or edema. 21:21 Neck: Trachea midline, no thyromegaly or masses palpated, and no cervical lymphadenopathy. Supple, full range of motion without nuchal rigidity, or vertebral point tenderness. No Meningismus. Chest/axilla: Normal chest wall appearance and motion. Nontender with no deformity. No lesions are appreciated. Cardiovascular: Regular rate and rhythm with a normal S1 and S2. No gallops, murmurs, or rubs. Normal PMI, no JVD. No pulse deficits. Respiratory: Lungs have equal breath sounds bilaterally, clear to auscultation and percussion. No rales, rhonchi or wheezes noted. No increased work of breathing, no retractions or nasal flaring. Abdomen/GI: Soft, non-tender, with normal bowel sounds. No distension or tympany. No guarding or rebound. No evidence of tenderness throughout. + gravid Back: No spinal tenderness. No costovertebral tenderness. Full range of motion. Skin: Warm, dry with normal turgor. Normal color with no rashes, no lesions, and no evidence of cellulitis. MS/ Extremity: Pulses equal, no cyanosis. Neurovascular intact. Full, normal range of motion. Neuro: Awake and alert, GCS 15, oriented to person, place, time, and situation. Cranial nerves II-XII grossly intact. Motor strength 5/5 in all extremities. Sensory grossly intact. Cerebellar exam normal. Normal gait. 21:21 ENT: TM's: erythema, on the right, Examination of the other ear shows no obvious abnormality, Nose: Nasal mucosa: edematous, Mouth: is normal, Posterior pharynx: is normal, Voice: is normal. Vital Signs: 20:37 BP 142 / 83; Pulse 94; Resp 18; Temp 97.4; Pulse Ox 100% on R/A; sr5 MDM: 20:49 Patient medically screened. snw 21:23 Data reviewed: vital signs, nurses notes. Data interpreted: Pulse oximetry: on room air snw is 100 %. Interpretation: normal. Counseling: I had a detailed discussion with the patient and/or guardian regarding: the historical points, exam findings, and any diagnostic results supporting the discharge/admit diagnosis, the presence of at least one elevated blood pressure reading (>120/80) during this emergency department visit, lab results, the need for outpatient follow up, to return to the emergency department if symptoms worsen or persist or if there are any questions or concerns that arise at home. Special discussion: I have referred the patient to see his PCP for further evaluation of high blood pressure. Based on the history and exam findings, there is no indication for further emergent testing or inpatient evaluation. I discussed with the patient/guardian the need to see the OB Gyne specialist for further evaluation of the symptoms. I discussed with the patient/guardian the need to see the primary care provider for further evaluation of the symptoms. medications during discussed. 05/31 20:50 Order name: Strep snw 05/31 20:52 Order name: Flu snw Administered Medications: No medications were administered Disposition: 06/01 01:02 Co-signature as Attending Physician, Moises Rueda MD. rn Disposition: 05/31/18 21:17 Discharged to Home. Impression: Acute upper respiratory infection, unspecified, state. - Condition is Stable. - Discharge Instructions: Upper Respiratory Infection, Adult, Cool Mist Vaporizer, Third Trimester of , Okoi-qo-Bpur, Rehydration, Adult. - Prescriptions for Nasonex 50 mcg/actuation Nasal spray,non- aerosol - spray 2 spray by INTRANASAL route once daily; 1 Cartridge. - Work release form, Medication Reconciliation Form, Thank You Letter, Antibiotic Education, Prescription Opioid Use form. - Follow up: Private Physician; When: 2 - 3 days; Reason: Recheck today's complaints, Continuance of care, Re-evaluation by your physician. Follow up: Emergency Department; When: As needed; Reason: Worsening of condition. Signatures: Dispatcher [employer] EDRocío Carter, PUBLICITY AGENT-C PUBLICITY AGENT-Csnw Moises Rueda MD MD rn Brad Saleem RN RN sr5 Yohan Sharp RN RN mg2 Corrections: (The following items were deleted from the chart) 05/31 21:36 21:17 05/31/2018 21:17 Discharged to Home. Impression: Acute upper respiratory mg2 infection, unspecified; state. Condition is Stable. Discharge Instructions: Upper Respiratory Infection, Adult, Third Trimester of , Hhke-ty-Cybt, Rehydration, Adult. Forms are Medication Reconciliation Form, Thank You Letter, Antibiotic Education, Prescription Opioid Use. Follow up: Private Physician; When: 2 - 3 days; Reason: Recheck today's complaints, Continuance of care, Re-evaluation by your physician. Follow up: Emergency Department; When: As needed; Reason: Worsening of condition. snw
[2018-05-31 21:39] VITALS: BP 142/83; TEMP 97.4; O2SAT 100
== END 2018-05-31 21:36 | disposition home or self-care (01) ==
LOC: ER 20:28
DX: J06.9 Acute upper respiratory infection, unspecified (principal); Z3A.33 33 weeks gestation of pregnancy
CPT/HCPCS: 87070; 87081; 87804; 99282

== ENCOUNTER 2018-08-24 09:25 | Emergency (ER) | payer OTHER ==
--- OUTSIDE RECORDS SUMMARY | 2018-08-24 09:28 | XMS REPORT ---
:1990 [facility] Address [address] [place] [address] Care Team Providers Name Role Phone Unavailable Unavailable Unavailable Payers Payer Name Policy Type Policy Number Effective Date Expiration Date Problems This patient has no known problems. Allergies, Adverse Reactions, Alerts Allergy Allergy Status Severity Reaction(s) Onset Inactive Treating Comments Name Type Date Date Clinician No Known DA Active U 2017-07 Allergies -29 00:00:0 0 Medications This patient has no known medications.
--- NOTE | 2018-08-24 09:46 | EDPHYS ---
Physician Documentation [facility] Name: Kerri Fulton Age: 27 yrs Sex: Female : 1990 Arrival Date: 08/24/2018 Time: 09:26 Bed 20 Private MD: Juan Manuel Ayon HPI: 08/24 10:58 This 27 yrs old Female presents to ER via Ambulatory with complaints of snw Toothache. 10:58 The patient presents with broken tooth/teeth, pain. The problem is located in the upper snw right third molar (#1). Onset: The symptoms/episode began/occurred suddenly, 2 day(s) ago, and became worse and became persistent. Duration: The symptoms lacinating pain every 15 seconds or so. Associated signs and symptoms: Pertinent positives: anorexia, inability to eat, pain. Severity of symptoms: At their worst the symptoms were incapacitating. recent , stopped as she was taking large quantity of motrin. Historical: - Allergies: 09:32 No Known Allergies; ss - Home Meds: 09:32 None [Active]; ss - PMHx: 09:32 None; ss - PSHx: 09:32 Cholecystectomy; ; ss - Immunization history:: Adult Immunizations up to date. - Social history:: Smoking status: Patient/guardian denies using tobacco. - Ebola Screening: : Patient denies exposure to infectious person Patient denies travel to an Ebola-affected area in the 21 days before illness onset. ROS: 10:51 Constitutional: Negative for fever, chills, and weight loss, Eyes: Negative for injury, snw pain, redness, and discharge, Neck: Negative for injury, pain, and swelling, Cardiovascular: Negative for chest pain, palpitations, and edema, Respiratory: Negative for shortness of breath, cough, wheezing, and pleuritic chest pain, Abdomen/GI: Negative for abdominal pain, nausea, vomiting, diarrhea, and constipation, Back: Negative for injury and pain, : Negative for injury, bleeding, discharge, and swelling, MS/Extremity: Negative for injury and deformity, Skin: Negative for injury, rash, and discoloration, Neuro: Negative for headache, weakness, numbness, tingling, and seizure. 10:51 ENT: Positive for dental pain, shooting right facial pain. Exam: 10:57 Constitutional: This is a well developed, well nourished patient who is awake, alert, snw and in no acute distress. Head/Face: Normocephalic, atraumatic. Eyes: Pupils equal round and reactive to light, extra-ocular motions intact. Lids and lashes normal. Conjunctiva and sclera are non-icteric and not injected. Cornea within normal limits. Periorbital areas with no swelling, redness, or edema. Neck: Trachea midline, no thyromegaly or masses palpated, and no cervical lymphadenopathy. Supple, full range of motion without nuchal rigidity, or vertebral point tenderness. No Meningismus. Chest/axilla: Normal chest wall appearance and motion. Nontender with no deformity. No lesions are appreciated. Cardiovascular: Regular rate and rhythm with a normal S1 and S2. No gallops, murmurs, or rubs. Normal PMI, no JVD. No pulse deficits. Respiratory: Lungs have equal breath sounds bilaterally, clear to auscultation and percussion. No rales, rhonchi or wheezes noted. No increased work of breathing, no retractions or nasal flaring. Abdomen/GI: Soft, non-tender, with normal bowel sounds. No distension or tympany. No guarding or rebound. No evidence of tenderness throughout. Back: No spinal tenderness. No costovertebral tenderness. Full range of motion. Skin: Warm, dry with normal turgor. Normal color with no rashes, no lesions, and no evidence of cellulitis. MS/ Extremity: Pulses equal, no cyanosis. Neurovascular intact. Full, normal range of motion. Neuro: Awake and alert, GCS 15, oriented to person, place, time, and situation. Cranial nerves II-XII grossly intact. Motor strength 5/5 in all extremities. Sensory grossly intact. Cerebellar exam normal. Normal gait. Psych: Awake, alert, with orientation to person, place and time. Behavior, mood, and affect are within normal limits. 10:57 ENT: External ear(s): are unremarkable, Ear canal(s): are normal, TM's: are normal, Mouth: is normal, Posterior pharynx: is normal, Dental exam: dental caries, that is moderate, specifically in the upper right third molar (#1). Vital Signs: 09:32 BP 134 / 93; Pulse 70; Resp 16; Temp 97.7(TE); Pulse Ox 100% on R/A; Weight 113.4 kg; ss Height 5 ft. 3 in. (160.02 cm); Pain 06/01; 09:32 Body Mass Index 44.29 (113.40 kg, 160.02 cm) ss MDM: 09:38 Patient medically screened. [facility] 10:51 Data reviewed: vital signs, nurses notes. Data interpreted: Pulse oximetry: on room air snw is 100 %. Interpretation: normal. Counseling: I had a detailed discussion with the patient and/or guardian regarding: the historical points, exam findings, and any diagnostic results supporting the discharge/admit diagnosis, the presence of at least one elevated blood pressure reading (>120/80) during this emergency department visit, the need for outpatient follow up, to return to the emergency department if symptoms worsen or persist or if there are any questions or concerns that arise at home. Special discussion: I have referred the patient to see his PCP for further evaluation of high blood pressure. Based on the history and exam findings, there is no indication for further emergent testing or inpatient evaluation. I discussed with the patient/guardian the need to see a dentist for further evaluation of the symptoms. Administered Medications: 09:54 Drug: fentaNYL (PF) 50 mcg Route: IM; Site: right gluteus; sv 10:16 Follow up: Response: No adverse reaction sv 09:54 Drug: TORadol 60 mg Route: IM; Site: right gluteus; sv 10:16 Follow up: Response: No adverse reaction sv 09:54 Drug: Augmentin 875 mg Route: PO; sv 10:16 Follow up: Response: No adverse reaction sv Disposition: 15:04 Co-signature as Attending Physician, Juan Manuel Ackerman MD I agree with the assessment and [facility] plan of care. Disposition: 08/24/18 09:46 Discharged to Home. Impression: Dental root caries. - Condition is Stable. - Discharge Instructions: Dental Caries, Adult, Dental Pain, Root Canal. - Prescriptions for chlorhexidine gluconate 0.12 % Mucous Membrane mouthwash - place 15 milliliter by MUCOUS MEMBRANE route 2 times per day after brushing teeth, swish in mouth for 30 seconds then spit out; 480 milliliter. Augmentin 875- 125 mg Oral Tablet - take 1 tablet by ORAL route every 12 hours for 10 days; 20 tablet. Tylenol- Codeine #3 300-30 mg Oral Tablet - take 2 tablets by ORAL route every 6 hours As needed; 20 tablet. - Medication Reconciliation Form, Thank You Letter, Antibiotic Education, Prescription Opioid Use form. - Follow up: Private Physician; When: 1 - 2 days; Reason: Recheck today's complaints, Continuance of care, Re-evaluation by your physician. Follow up: Emergency Department; When: As needed; Reason: Worsening of condition. Signatures: Betty Lock RN RN Juan Manuel Sewell MD MD cha Therrien, Shelly, COMMUNITY PLANNER-C COMMUNITY PLANNER-Csnw Tatiana Estrada RN RN ss Corrections: (The following items were deleted from the chart) 10:17 09:46 08/24/2018 09:46 Discharged to Home. Impression: Dental root caries. Condition is sv Stable. Forms are Medication Reconciliation Form, Thank You Letter, Antibiotic Education, Prescription Opioid Use. Follow up: Private Physician; When: 1 - 2 days; Reason: Recheck today's complaints, Continuance of care, Re-evaluation by your physician. Follow up: Emergency Department; When: As needed; Reason: Worsening of condition. snw
--- NOTE | 2018-08-24 09:46 | ER ---
Nurse's Notes [facility] Name: Kerri Fulton Age: 27 yrs Sex: Female : 1990 Arrival Date: 08/24/2018 Time: 09:26 Bed 20 Private MD: Diagnosis: Dental root caries Presentation: 08/24 09:30 Presenting complaint: Patient states: dental pain x 2 days. Denies fever. Transition of ss care: patient was not received from another setting of care. Onset of symptoms was August 22, 2018. Risk Assessment: Do you want to hurt yourself or someone else? Patient reports no desire to harm self or others. Initial Sepsis Screen: Does the patient meet any 2 criteria? No. Patient's initial sepsis screen is negative. Does the patient have a suspected source of infection? No. Patient's initial sepsis screen is negative. Care prior to arrival: None. 09:30 Method Of Arrival: Ambulatory ss 09:30 Acuity: KEN 5 ss Historical: - Allergies: 09:32 No Known Allergies; ss - Home Meds: 09:32 None [Active]; ss - PMHx: 09:32 None; ss - PSHx: 09:32 Cholecystectomy; ; ss - Immunization history:: Adult Immunizations up to date. - Social history:: Smoking status: Patient/guardian denies using tobacco. - Ebola Screening: : Patient denies exposure to infectious person Patient denies travel to an Ebola-affected area in the 21 days before illness onset. Screenin:37 Abuse screen: Denies threats or abuse. Denies injuries from another. Nutritional sv screening: No deficits noted. Tuberculosis screening: No symptoms or risk factors identified. Fall Risk None identified. Assessment: 09:40 General: Appears in no apparent distress. uncomfortable, Behavior is calm, cooperative, sv appropriate for age. Pain: Complains of pain in mouth Pain currently is 10 out of 10 on a pain scale. Neuro: Level of Consciousness is awake, alert, obeys commands, Oriented to person, place, time, situation, Moves all extremities. Full function Gait is steady, Speech is normal. Respiratory: Respiratory effort is even, unlabored, Respiratory pattern is regular, symmetrical. Derm: Skin is pink, warm \T\ dry. 09:54 Reassessment: Pt waiting IM shot time before discharge. sv 10:16 Reassessment: Patient appears in no apparent distress at this time. No changes from sv previously documented assessment. Patient and/or family updated on plan of care and expected duration. Pain level reassessed. Patient is alert, oriented x 3, equal unlabored respirations, skin warm/dry/pink. Vital Signs: 09:32 BP 134 / 93; Pulse 70; Resp 16; Temp 97.7(TE); Pulse Ox 100% on R/A; Weight 113.4 kg; ss Height 5 ft. 3 in. (160.02 cm); Pain 10/; 09:32 Body Mass Index 44.29 (113.40 kg, 160.02 cm) ED Course: 09:26 Patient arrived in ED. sb2 09:31 Triage completed. ss 09:32 Arm band placed on right wrist. ss 09:34 Rocío Franklin FNP-C is PHCP. snw 09:34 Juan Manuel Ackerman MD is Attending Physician. snw 09:37 Betty Lock RN is Primary Nurse. sv 09:37 Patient has correct armband on for positive identification. Bed in low position. Call sv light in reach. Door closed. Head of bed elevated. 09:54 No provider procedures requiring assistance completed. Patient did not have IV access sv during this emergency room visit. Administered Medications: 09:54 Drug: fentaNYL (PF) 50 mcg Route: IM; Site: right gluteus; sv 10:16 Follow up: Response: No adverse reaction sv 09:54 Drug: TORadol 60 mg Route: IM; Site: right gluteus; sv 10:16 Follow up: Response: No adverse reaction sv 09:54 Drug: Augmentin 875 mg Route: PO; sv 10:16 Follow up: Response: No adverse reaction sv Outcome: 09:46 Discharge ordered by . snw 10:16 Discharged to home ambulatory, with family. sv 10:16 Condition: stable 10:16 Discharge instructions given to patient, Instructed on discharge instructions, follow up and referral plans. no drinking with medication, no driving heavy equipment, medication usage, Demonstrated understanding of instructions, follow-up care, medications, Prescriptions given X 3. 10:17 Patient left the ED. sv Signatures: Betty Lcok RN RN Rocío Franklin FNP-C FNP-Tatiana Branch RN RN Kellee Mercado sb2
[2018-08-24] MEDS ORDERED: AMOX/K CLAV 875 MG TAB ONE (09:58)
[2018-08-24] MEDS ORDERED: FENTANYL CITR 100 MCG/2 ML ONE (09:58)
[2018-08-24] MEDS ORDERED: KETOROLAC 30 MG/ML INJ ONE (09:58)
[2018-08-24 10:22] VITALS: BP 134/93; TEMP 97.7; O2SAT 100
== END 2018-08-24 10:17 | disposition home or self-care (01) ==
LOC: ER 09:25
DX: K02.7 Dental root caries (principal)
CPT/HCPCS: 96372; 99283; J3010

== ENCOUNTER 2020-07-12 23:26 | Emergency (ER) | payer OTHER ==
--- OUTSIDE RECORDS SUMMARY | 2020-07-12 23:30 | XMS REPORT | Continuity of Care Document ---
:1990 Author Organization [email or web address] Care Team Providers Name Role Phone [email or web address] Unavailable Un available Problems Problem Status Onset Classification Date Comments Sourc e Date Reported FLU LIKE Active [facility] st SYMPTOMS 0 Mild 01/23/2020 [facility] ast hyperemesis 0 gravidarum Other specified 01/23/2020 [facility] 0 related conditions, first trimester CRAMPING Active [facility] 0 Unspecified 10/08/2019 [facility] abdominal pain 0 ABD PAIN Active [facility] st 0 Medications Medication Details Route Status Patient Ordering Order Source Instructions Provider Date pantoprazole = 1 Pack, PO, Active 40 MG Granules Daily, # 30 2019 [facility] [Protonix] ea, 0 Refill(s) Ondansetron 4 4 mg = 1 tab, Active MG Oral Tablet PO, Q6H, PRN 2019 [facility] [Zofran] Nausea/Vomitin g, # 30 tab, 0 Refill(s) Sodium 1,000 mL, 1000 Inactive Chloride 0.9% ml/hr, Infuse 2019 [facility] (Bolus) IV Over: 1 hr, Route: IV, 1,000, Drug form: INJ, ONCE, Priority: STAT, Dosing Weight 127.273 kg, Start date: 01/21/20 16:08:00 CDT, Stop date: 01/21/20 16:08:00 CDT, 0 Ondansetron Notes: (Same Inactive as: Zofran) 2019 MEDICATION WASTE Product Size: 4 mg Product Wasted: ___ mg pantoprazole Notes: For IV Inactive push 2019 reconstitute with 10 ml 0.9% sodium chloride and push over 2 minutes. (Same as: Protonix) Tylenol 650 mg, 2 tab, Inactive Route: PO, 2019 [facility] Drug form: TAB, ONCE, Dosing Weight 127.273, kg, Priority: STAT, Start date: 01/21/20 14:40:00 CDT, Stop date: 01/21/20 14:40:00 CDT, 0 ibuprofen 600 600 mg = 1 Active mg oral tablet tab, PO, Q6H, 2019 [facility] PRN Pain or Fever, Take with food, X 10 day, # 40 tab, 0 Refill(s) Bentyl 20 mg, Route: Inactive IM, ONCE, 2019 Dosing Weight 136.364, kg, Priority: STAT, Start date: 10/05/19 22:58:00 [employer], Stop date: 10/05/19 22:58:00 [employer] Allergies, Adverse Reactions, Alerts No Known Medication Allergies Immunizations No Data Provided for This Section Results Order Name Results Value Reference Date Interpretation Comments Nicole rce Range URINE AND UA Color Yellow Yellow 01/20 STOOL *NA* [facility] (01/21/20 2:03 PM) URINE AND UA Turbidity Slight Clear 01/20 STOOL *ABN* [facility] (01/21/20 2:03 PM) URINE AND UA Spec Grav 1.012 <=1.030 01/20 STOOL [facility] URINE AND UA pH 6.0 5.0 - 8.0 01/20 STOOL [facility] URINE AND UA Protein Negative Negative 01/20 [facility] mg/dL mg/dL [facility] URINE AND UA Glucose Negative Negative 01/20 [facility] mg/dL mg/dL [facility] URINE AND UA Ketones Trace Negative 01/20 [facility] mg/dL mg/dL [facility] URINE AND UA Bili Negative Negative 01/20 STOOL *NA* /2019 [facility] (01/21/20 2:03 PM) URINE AND UA Blood Small Negative 01/20 STOOL *ABN* [facility] (01/21/20 2:03 PM) URINE AND UA Nitrite Negative Negative 01/20 [facility] (01/21/20 2:03 PM) [facility] URINE AND UA Leuk Est Negative Negative 01/20 [facility] (01/21/20 2:03 PM) [facility] URINE AND UA Sq Epi Many /LPF Few /LPF 01/20 STOOL [facility] URINE AND UA WBC 2 0 - 5 01/20 STOOL [facility] URINE AND UA RBC 1 0 - 2 01/20 STOOL [facility] URINE AND UA Bacteria Many /HPF None Seen 01/20 STOOL /HPF [facility] URINE AND UA <=1.0 0.1 - 1.0 01/20 STOOL Urobilinogen mg/dL [facility] BLOOD BANK ABO/Rh B NEG 01/20 RESULTS [facility] CHEM PANEL Glucose Lvl 97 70 - 99 01/20 [facility] CHEM PANEL BUN 7 7 - 22 01/20 [facility] CHEM PANEL Creatinine 0.66 0.50 - 01/20 Lvl 1.40 [facility] CHEM PANEL Sodium Lvl 136 135 - 145 01/20 [facility] CHEM PANEL Potassium 3.7 3.5 - 5.1 01/20 Lvl [facility] CHEM PANEL Chloride Lvl 103 95 - 109 01/20 [facility] CHEM PANEL CO2 26 24 - 32 01/20 [facility] CHEM PANEL Calcium Lvl 8.9 8.5 - 10.5 01/20 [facility] CHEM PANEL Total 7.8 6.4 - 8.4 01/20 Protein [facility] CHEM PANEL Albumin Lvl 3.2 3.5 - 5.0 01/20 [facility] CHEM PANEL ALT 19 0 - 65 01/20 [facility] CHEM PANEL AST 8 0 - 37 01/20 [facility] CHEM PANEL Alk Phos 82 39 - 136 01/20 [facility] CHEM PANEL Bili Total 0.6 0.2 - 1.3 01/20 [facility] CHEM PANEL AGAP 10.7 10.0 - 01/20 MH 20.0 [facility] CHEM PANEL B/C Ratio 11 6 - 25 01/20 [facility] CHEM PANEL Globulin 4.6 2.7 - 4.2 01/20 [facility] CHEM PANEL A/G Ratio 0.7 0.7 - 1.6 01/20 [facility] CHEM PANEL eGFR 119 01/20 Result Comment: The [facility] eGFR is calculated using the CKD-EPI formula. In most young, healthy individuals the eGFR will be >90 mL/min/1.73m2 . The eGFR declines with age. An eGFR of 60-89 may be normal in some populations, particularly the elderly, for whom the CKD-EPI formula has not been extensively validated. Use of the eGFR is not recommended in the following populations:< br/>
Sera viduals with unstable creatinine concentration s, including patients and those with serious co-morbid conditions.<b r/>
Patie nts with extremes in muscle mass or diet.

The data above are obtained from the National Kidney Disease Education Program (NKDEP) which additionally recommends that when the eGFR is used in patients with extremes of body mass index for purposes of drug dosing, the eGFR should be multiplied by the estimated BMI. CHEM PANEL Lipase Lvl 152 73 - 393 01/20 MH [facility] ENDOCRINOL hCG Tot [id number] 01/20 MH OGY /2019 [facility] HEMATOLOGY WBC 7.3 3.7 - 10.4 01/20 [facility] HEMATOLOGY RBC 5.32 4.20 - 01/20 MH 5.40 /2019 [facility] HEMATOLOGY Hgb 14.3 12.0 - 01/20 MH 16.0 [facility] HEMATOLOGY Hct 43.4 36.0 - 01/20 MH 48.0 [facility] HEMATOLOGY MCV 81.7 80.0 - 01/20 MH 98.0 [facility] HEMATOLOGY MCH 27.0 27.0 - 01/20 MH 31.0 [facility] MCHC 33.0 32.0 - 01/20 MH 36.0 [facility] HEMATOLOGY RDW 14.2 11.5 - 01/20 MH 14.5 [facility] Platelet 199 133 - 450 01/20 [facility] HEMATOLOGY MPV 9.2 7.4 - 10.4 01/20 [facility] HEMATOLOGY Segs 76.8 45.0 - 01/20 MH 75.0 [facility] Lymphocytes 15.0 20.0 - 01/20 MH 40.0 [facility] Monocytes 7.7 2.0 - 12.0 01/20 [facility] HEMATOLOGY Eosinophils 0.2 0.0 - 4.0 01/20 [facility] HEMATOLOGY Basophils 0.3 0.0 - 1.0 01/20 [facility] HEMATOLOGY Neutrophils 5.6 1.5 - 8.1 01/20 MH # /2020 [facility] HEMATOLOGY Lymphocytes 1.1 1.0 - 5.5 01/20 MH # /2019 [facility] HEMATOLOGY Monocytes # 0.6 0.0 - 0.8 01/20 [facility] URINE AND UA Color Yellow Yellow 10/06 STOOL *NA* /2019 [facility] (10/05/19 10:55 PM) URINE AND UA Turbidity Clear Clear 10/06 [facility] (10/05/19 10:55 PM) [facility] URINE AND UA Spec Grav 1.023 <=1.030 10/06 STOOL [facility] URINE AND UA pH 5.0 5.0 - 8.0 10/06 STOOL [facility] URINE AND UA Protein Negative Negative 10/06 [facility] mg/dL mg/dL [facility] URINE AND UA Glucose Negative Negative 10/06 [facility] mg/dL mg/dL [facility] URINE AND UA Ketones Negative Negative 10/06 [facility] mg/dL mg/dL [facility] URINE AND UA Bili Negative Negative 10/06 STOOL *NA* /2019 [facility] (10/05/19 10:55 PM) URINE AND UA Blood Moderate Negative 10/06 STOOL *ABN* /2019 [facility] (10/05/19 10:55 PM) URINE AND UA Nitrite Positive Negative 10/06 STOOL *ABN* [facility] (10/05/19 10:55 PM) URINE AND UA Leuk Est Negative Negative 10/06 [facility] (10/05/19 10:55 PM) [facility] URINE AND UA Sq Epi Few /LPF Few /LPF 10/06 STOOL [facility] URINE AND UA WBC 4 0 - 5 10/06 STOOL [facility] URINE AND UA RBC 8 0 - 2 10/06 STOOL [facility] URINE AND UA Bacteria Occasional None Seen 10/06 [facility] /HPF /HPF [facility] URINE AND UA Mucus Few /LPF None Seen 10/06 STOOL /LPF [facility] URINE AND UA <=1.0 0.1 - 1.0 10/06 [facility] Urobilinogen mg/dL [facility] CHEM PANEL Glucose Lvl 114 70 - 99 10/06 [facility] CHEM PANEL BUN 9 7 - 22 10/06 [facility] CHEM PANEL Creatinine 0.74 0.50 - 10/06 Lvl 1.40 [facility] CHEM PANEL Sodium Lvl 136 135 - 145 10/06 [facility] CHEM PANEL Potassium 3.6 3.5 - 5.1 10/06 Lvl [facility] CHEM PANEL Chloride Lvl 102 95 - 109 10/06 [facility] CHEM PANEL CO2 29 24 - 32 10/06 [facility] CHEM PANEL Calcium Lvl 9.2 8.5 - 10.5 10/06 [facility] CHEM PANEL AGAP 8.6 10.0 - 10/06 20.0 [facility] CHEM PANEL eGFR 111 10/06 Result Comment: The [facility] eGFR is calculated using the CKD-EPI formula. In most young, healthy individuals the eGFR will be >90 mL/min/1.73m2 . The eGFR declines with age. An eGFR of 60-89 may be normal in some populations, particularly the elderly, for whom the CKD-EPI formula has not been extensively validated. Use of the eGFR is not recommended in the following populations:< br/>
Sera viduals with unstable creatinine concentration s, including patients and those with serious co-morbid conditions.<b r/>
Patie nts with extremes in muscle mass or diet.

The data above are obtained from the National Kidney Disease Education Program (NKDEP) which additionally recommends that when the eGFR is used in patients with extremes of body mass index for purposes of drug dosing, the eGFR should be multiplied by the estimated BMI. ENDOCRINOL S Preg Negative Negative 10/06 OGY *NA* /2019 [facility] (10/05/19 8:59 PM) HEMATOLOGY Segs 66.4 45.0 - 10/06 MH 75.0 [facility] HEMATOLOGY Lymphocytes 25.1 20.0 - 10/06 MH 40.0 [facility] HEMATOLOGY Monocytes 7.4 2.0 - 12.0 10/06 [facility] HEMATOLOGY Eosinophils 0.7 0.0 - 4.0 10/06 [facility] HEMATOLOGY Basophils 0.4 0.0 - 1.0 10/06 [facility] HEMATOLOGY Neutrophils 7.1 1.5 - 8.1 10/06 MH # /2020 [facility] HEMATOLOGY Lymphocytes 2.7 1.0 - 5.5 10/06 MH # /2019 [facility] HEMATOLOGY Monocytes # 0.8 0.0 - 0.8 10/06 [facility] HEMATOLOGY Eosinophils 0.1 0.0 - 0.5 10/06 MH # /2020 [facility] HEMATOLOGY WBC 10.7 3.7 - 10.4 10/06 /2019 [facility] HEMATOLOGY RBC 5.13 4.20 - 02 MH 5.40 /2019 [facility] Hgb 14.1 12.0 - 10/06 MH 16.0 [facility] Hct 41.7 36.0 - 10/06 48.0 [facility] HEMATOLOGY MCV 81.4 80.0 - 10/06 98.0 [facility] MCH 27.5 27.0 - 10/06 31.0 [facility] MCHC 33.8 32.0 - 10/06 36.0 [facility] RDW 14.0 11.5 - 10/06 14.5 [facility] Platelet 216 133 - 450 10/06 [facility] MPV 9.2 7.4 - 10.4 10/06 [facility] Pathology Reports No Data Provided for This Section Diagnostic Reports Report Value Date Source Preg < 14wks sing PROCEDURE INFORMATION: 01/21/2020 [facility] gest w transvag/Dop Exam: US First Trimester, Transabdominal and US , US Transvaginal Exam date and time: 01/21/2020 2:52 PM Age: 29 years old Clinical indication: /abd pain TECHNIQUE: Imaging protocol: Real-time transabdominal ob stetrical ultrasound of the maternal pelvis and a first trimester , less than 14 weeks 0 days, with image documentation. Transvaginal imaging w as used for better evaluation of the fetus and adnexa. COMPARISON: No relevant prior studies available . TECHNIQUE: Transvaginal and transabdominal pelvic ultrasoun d was performed. FINDINGS: Transabdominal images of the pelvis show the anteverted uterus measuring 11.6 x 8.5 x 9.8 cm in size. The transvaginal exam shows a single viable intr auterine gestation with CRL measurement of 2.8 cm, yielding estimated gestat ion age of 9 weeks 5 days. Amniotic fluid filled gestat ion sac MSD 4.8 cm.The heart rate is 168 bpm. Miniscule subchorionic hemorrhage is seen. Yolk sac is visualized. Cervical nabothian cysts are seen. The ovaries are not well visualized on this exam . There is no adnexal mass. There is <no> free fluid in the cul-de-sac. IMPRESSION: 1. Single live IUP with estimated gestat ion age of 9 weeks 5 days; heart rate at 168 bpm. 2. Miniscule subchorionic hemorrhage. Alex Christos MD On 01/21/2020 15:54:17; [id number] Consultation Notes No Data Provided for This Section Discharge Summaries No Data Provided for This Section History and Physicals No Data Provided for This Section Vital Signs Vital Sign Value Date Comments Source Height 162.56 cm 02/17/2020 [facility] BMI Calculated 46.44 02/17/2020 [facility] Weight 122.727 02/17/2020 [facility] Systolic (mm Hg) 151 02/17/2020 [facility] Diastolic (mm Hg) 89 02/17/[address] [facility] Heart Rate 93 02/17/2020 [facility] Respitory Rate 18 02/17/2020 [facility] Temperature Oral (F) 98.7 F 02/17/2020 [facility] Heart Rate 78 01/21/2020 [facility] Respitory Rate 18 01/21/2020 [facility] Systolic (mm Hg) 142 01/21/2020 [facility] Diastolic (mm Hg) 69 01/21/[address] [facility] [address] Height 162.56 cm 01/21/2020 [facility] BMI Calculated 48.16 01/21/2020 [facility] Weight 127.273 01/21/2020 [facility] Systolic (mm Hg) 129 01/21/2020 [facility] Diastolic (mm Hg) 78 01/21/[address] [facility] [address] Heart Rate 88 01/21/2020 [facility] Respitory Rate 16 01/21/2020 [facility] Temperature Oral (F) 98.3 F 01/21/2020 [facility] Temperature Oral (F) 98.1 F 10/06/2019 [facility] Heart Rate 85 10/06/2019 [facility] Respitory Rate 18 10/06/2019 [facility] Systolic (mm Hg) 135 10/06/2019 [facility] Diastolic (mm Hg) 68 10/06/[address] [facility] [address] Systolic (mm Hg) 111 10/06/2019 [facility] Diastolic (mm Hg) 73 10/06/[address] [facility] [address] Heart Rate 92 10/06/2019 [facility] Respitory Rate 18 10/06/2019 [facility] Temperature Oral (F) 97.4 F 10/06/2019 [facility] Weight 136.364 10/06/2019 [facility] Encounters Location Location Encounter Encounter Reason Attending ADM DC Stat us Source Details Type Number For Provider Date Date Visit [facility] Emergency [id number] Ramana 10/06 10/06 Dante Mcdonough /2019 [facility] Emergency [id number] Caio Ihangelica 01/20 01/20 Dante /2019 [facility] Emergency [id number] Robert 02/16 02/16 Dante Garcia /2019 [facility] Procedures No Data Provided for This Section Assessment and Plan No Data Provided for This Section Plan of Care No Data Provided for This Section Social History Social History Date Source Social History TypeResponse 01/21/2020 [facility] Smoking Status Never smoker; Ready to change: No; Margarita rns about tobacco use in household: No; Exposure to Tobacco Smoke None; Cigarette Smoking Last 365 Days No; Reg Smoking Cessation Counseling No entered on: 01/21/20 Family History No Data Provided for This Section Advance Directives No Data Provided for This Section Functional Status No Data Provided for This Section
[2020-07-13] MEDS ORDERED: ACETAMINOPHEN 500 MG TAB ONE (00:17)
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
[2020-07-13 10:39] VITALS: BP 102/52; TEMP 98.2; O2SAT 99
== END 2020-07-13 00:34 | disposition home or self-care (01) ==
LOC: ER 23:26
DX: O9A.313 Physical abuse complicating pregnancy, third trimester (principal); S40.812A Abrasion of left upper arm, initial encounter; S40.811A Abrasion of right upper arm, initial encounter; S90.415A Abrasion, left lesser toe(s), initial encounter; S90.812A Abrasion, left foot, initial encounter; Z3A.38 38 weeks gestation of pregnancy
CPT/HCPCS: 99284